=== PATIENT | female | born 1975 | race Caucasian/White ===

== ENCOUNTER 2021-12-20 20:06 | Emergency (ER) | payer OTHER ==
[~2021-12-20] VITALS: Ht 170 cm; Wt 94.0 kg
--- NOTE | 2021-12-20 20:37 | ED Upper Extremity ---
General Chief Complaint: Upper Extremity Stated Complaint: WRIST INJURY Nursing Triage Note: PT AMB TO ED BY POV WITH C/O R WRIST PAIN. 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 oz. kg; 32.00 BMI Method: Progress/Results/Core Measures Results/Orders My Orders Orders - DONTAE JOHNSON NEWS EDITOR Wrist, Right, 3 Views Or More (12/20/21 20:22) Vital Signs/I&O 12/20/21 20:13 Temp 36.7 Pulse 94 Resp 16 B/P (MAP) 125/61 (82) Pulse Ox 96 O2 Delivery Room Air Blood Pressure Mean: 82 Departure Impression Primary Impression: Sprain of wrist, right Disposition: HOME, SELF-CARE Condition: Stable Departure-Patient Inst. Decision time for Depature: 21:24 Patient Instructions: Common Wrist Injuries ED Add. Discharge Instructions: Plan: 1. Ice 20 minutes at a time. 2. Wear brace for the next week. 3. Follow up with your doctor for any persistent symptoms. 4. Return to ER for any new, concerning, or worsening symptoms. 5. Tylenol or Ibuprofen as needed for pain per package. All discharge instructions reviewed with patient and/or family. Voiced understanding. Work/School Note: Work Release Form Date Seen in the Emergency Department: Dec 20, 2021 Return to Work: Dec 25, 2021 Restrictions: No Restrictions DONTAE JOHNSON APRN Dec 20, 2021 20:37
--- NOTE | 2021-12-20 21:21 | Diagnostic Imaging Report ---
EXAMINATION: Right wrist 3 or more views. REASON FOR EXAM: Lifting injury. Right wrist pain. COMPARISON: None available. FINDINGS: There is no acute fracture or dislocation of the right wrist. There is normal alignment of the wrist and carpel bones. The imaged joint spaces are preserved. No large joint effusion is seen in the right wrist. The surrounding soft tissues are unremarkable. IMPRESSION: No acute fracture or dislocation in the right wrist. Dictated by: Dictated on workstation # [id number]
[2021-12-20 22:00] VITALS: BP 126/68
== END 2021-12-20 22:00 | disposition home or self-care (01) ==
LOC: EDUNIT# 20:06 → ER 20:09
DX: S63.501A Unspecified sprain of right wrist, initial encounter (principal); X50.1XXA Overexertion from prolonged static or awkward postures, initial encounter
CPT/HCPCS: 29125; 73110

== ENCOUNTER 2022-09-13 20:49 | Emergency (ER) | payer OTHER ==
[~2022-09-13] VITALS: Ht 170.2 cm; Wt 93.3 kg
[2022-09-13] MEDS ORDERED: NS IV 1000 ML 1,000 ML IV STA ×2 (21:24→22:15)
--- NOTE | 2022-09-13 21:34 | ED General ---
General Chief Complaint: COVID19 Suspect/Confirmed Stated Complaint: FEVER/COUGH/CONGESTION/HURTS TO BREATH Nursing Triage Note: TO ED VIA POV AND AMBULATORY TO ROOM 5 WITH C/O NOT FEELING WELL FOR A WEEK. STATES SHE HAS HAD "LOTS OF DRAINAGE AND WHAT FEELS LIKE IS PLEURISY". SUBJECTIVE FEVER AT HOME WITH READ HIGH "104". TOOK MOTRIN AT 1600 AND TYLENOL AT 1900 TONIGHT. Source of Information: Patient Exam Limitations: No Limitations History of Present Illness Date Seen by Provider: Sep 13, 2022 Time Seen by Provider: 21:25 Initial Comments Patient is a 47-year-old female who presents to the emergency room with a chief complaint of generalized fatigue, cough, fever for a week. Patient states that she has had some sinus congestion and drainage. She has been taking Claritin at home to help "dry it up". She took her temperature this evening and it read 104, she took some Tylenol and then decided to come to the emergency department. She is COVID vaccinated and flu vaccinated. She works at a lower local [employer]. No COVID outbreaks recently. She states her cough is dry. It hurts to take a deep breath. She denies earache, has mild sore throat. She has had prior tonsillectomy and adenoidectomy. No abdominal pain, nausea or vomiting. No black or bloody stools. She had a urinary tract infection earlier in the month which required 2 rounds of antibiotics. She is asymptomatic of UTI at this point. Denies rashes, joint pain or swelling. No headache. Of note the patient is tachycardic in the 120s, her blood pressure is good. SPO2 on room air lying supine in the bed is 93%. She is a former smoker, quit in 2012. Does not have to use inhalers or breathing treatments. No history of blood clot. No recent travel or prolonged immobility or surgery. Takes medication for tachycardia as well as "insulin resistance" All other review of systems reviewed and negative except as stated. Timing/Duration: 1 Week Severity: Moderate Associated Systoms: Cough, Fever/Chills, Malaise, Shortness of Air Allergies and Home Medications Allergies Coded Allergies: No Known Drug Allergies (Unverified , 09/13/22) Patient Home Medication List Home Medication List Reviewed: Yes Acetaminophen with Codeine (Acetaminop-Codeine 120-12 mg/5) 120 Mg-12 Mg/5 Ml (5 Ml) Solution, 10 ML PO Q6H PRN for cough Prescribed by: SHERRIE ANN on 09/13/222331 Albuterol Sulfate (Proventil Hfa) 6.7 Gm Hfa.aer.ad, 2 PUFF INH Q6H Prescribed by: SHERRIE ANN on 09/13/222331 Review of Systems Review of Systems Constitutional: see HPI, chills, fever, malaise EENTM: nose congestion Respiratory: cough, short of breath Cardiovascular: no symptoms reported Gastrointestinal: no symptoms reported Genitourinary: no symptoms reported : No Musculoskeletal: no symptoms reported Skin: no symptoms reported Psychiatric/Neurological: No Symptoms Reported All Other Systems Reviewed Negative Unless Noted: Yes Past Luswgir-Hhimny-Jqzmou Hx Patient Social History Tobacco Use?: No Substance use?: No Alcohol Use?: No Immunizations Up To Date Influenza Vaccine Up-to-Date: Yes; Up-to-Date First/Initial COVID19 Vaccinat: 2020 Second COVID19 Vaccination Tino: 2020 Third COVID19 Vaccination Date: 2021 Physical Exam Vital Signs Vital Signs - First Documented 09/13/22 21:01 Temp 38.8 Pulse 121 Resp 16 B/P (MAP) 151/83 (105) Pulse Ox 92 O2 Delivery Room Air Capillary Refill : Less Than 3 Seconds Height, Weight, BMI Height: '" Weight: lbs. oz. kg; 32.00 BMI Method: General Appearance: No Apparent Distress, WD/WN Eyes: Bilateral Eye Normal Inspection, Bilateral Eye PERRL, Bilateral Eye EOMI HEENT: PERRL/EOMI, TMs Normal (effusions bilaterally, no erythema), Pharynx Normal Neck: Normal Inspection, Non Tender, Supple Respiratory: Lungs Clear, Normal Breath Sounds, No Accessory Muscle Use, No Respiratory Distress Cardiovascular: Regular Rate, Rhythm, Tachycardia (120) Gastrointestinal: Normal Bowel Sounds, Non Tender, Soft Extremity: Normal Capillary Refill (brisk), Normal Inspection, Normal Range of Motion, Non Tender, No Calf Tenderness, No Pedal Edema Neurologic/Psychiatric: Alert, Oriented x3, No Motor/Sensory Deficits, Normal 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, 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 Norm as Tested Skin: Normal Color, Warm/Dry Focused Exam Lactate Level 3/30/23 21:33: Lactic Acid Level 0.86 Lactic Acid Level Laboratory Tests Test 09/13/22 21:33 Lactic Acid Level 0.86 MMOL/L (0.50-2.00) Progress/Results/Core Measures Suspected Sepsis SIRS Temperature: Pulse: 121 Respiratory Rate: 16 Laboratory Tests 09/13/22 21:33: White Blood Count 15.9H Blood Pressure 151 /83 Mean: 105 09/13/22 21:33: Lactic Acid Level 0.86 Laboratory Tests 09/13/22 21:33: Creatinine 0.71, INR Comment 1.0, Platelet Count 262, Total Bilirubin 0.3 Results/Orders Lab Results Laboratory Tests Test 09/13/22 21:25 09/13/22 21:27 09/13/22 21:33 Range/Units Urine Color YELLOW Urine Clarity CLEAR Urine pH 6.5 5-9 Urine Specific [place] 1.015 L 1.016-1.022 Urine Protein NEGATIVE NEGATIVE Urine Glucose (UA) NEGATIVE NEGATIVE Urine Ketones NEGATIVE NEGATIVE Urine Nitrite NEGATIVE NEGATIVE Urine Bilirubin NEGATIVE NEGATIVE Urine Urobilinogen 0.2 < = 1.0 MG/DL Urine Leukocyte Esterase NEGATIVE NEGATIVE Urine RBC (Auto) TRACE-I H NEGATIVE Urine RBC RARE /HPF Urine WBC NONE /HPF Urine Squamous Epithelial Cells 10-25 H /HPF Urine Crystals PRESENT H /LPF Urine Amorphous Sediment FEW CAL URATES H /LPF Urine Bacteria FEW H /HPF Urine Casts NONE /LPF Urine Mucus SMALL H /LPF Urine Culture Indicated CULTURE PENDING Influenza Type A (RT-PCR) Not Detected Not Detecte Influenza Type B (RT-PCR) Not Detected Not Detecte SARS-CoV-2 RNA (RT-PCR) Not Detected Not Detecte White Blood Count 15.9 H 4.3-11.0 10^3/uL Red Blood Count 4.77 3.80-5.11 10^6/uL Hemoglobin 13.0 11.5-16.0 g/dL Hematocrit 40 35-52 % Mean Corpuscular Volume 84 80-99 fL Mean Corpuscular Hemoglobin 27 25-34 pg Mean Corpuscular Hemoglobin Concent 33 32-36 g/dL Red Cell Distribution Width 13.8 10.0-14.5 % Platelet Count 262 130-400 10^3/uL Mean Platelet Volume 10.3 9.0-12.2 fL Immature Granulocyte % (Auto) 1 % Neutrophils (%) (Auto) 81 H 42-75 % Lymphocytes (%) (Auto) 13 12-44 % Monocytes (%) (Auto) 5 0-12 % Eosinophils (%) (Auto) 0 0-10 % Basophils (%) (Auto) 0 0-10 % Neutrophils # (Auto) 12.9 H 1.8-7.8 10^3/uL Lymphocytes # (Auto) 2.0 1.0-4.0 10^3/uL Monocytes # (Auto) 0.9 0.0-1.0 10^3/uL Eosinophils # (Auto) 0.0 0.0-0.3 10^3/uL Basophils # (Auto) 0.1 0.0-0.1 10^3/uL Immature Granulocyte # (Auto) 0.1 0.0-0.1 10^3/uL Neutrophils % (Manual) 85 % Lymphocytes % (Manual) 13 % Monocytes % (Manual) 2 % Platelet Estimate NORMAL Blood Morphology Comment NORMAL Prothrombin Time 13.8 12.2-14.7 SEC INR Comment 1.0 0.8-1.4 Activated Partial Thromboplast Time 35 24-35 SEC Sodium Level 141 135-145 MMOL/L Potassium Level 3.8 3.6-5.0 MMOL/L Chloride Level 107 98-107 MMOL/L Carbon Dioxide Level 23 21-32 MMOL/L Anion Gap 11 5-14 MMOL/L Blood Urea Nitrogen 11 7-18 MG/DL Creatinine 0.71 0.60-1.30 MG/DL Estimat Glomerular Filtration Rate 106 BUN/Creatinine Ratio 15 Glucose Level 114 H 70-105 MG/DL Lactic Acid Level 0.86 0.50-2.00 MMOL/L Calcium Level 8.9 8.5-10.1 MG/DL Corrected Calcium 8.8 8.5-10.1 MG/DL Total Bilirubin 0.3 0.1-1.0 MG/DL Aspartate Amino Transf (AST/SGOT) 14 5-34 U/L Alanine Aminotransferase (ALT/SGPT) 23 0-55 U/L Alkaline Phosphatase 95 40-136 U/L Total Protein 7.2 6.4-8.2 GM/DL Albumin 4.1 3.2-4.5 GM/DL My Orders Orders - SHERRIE ANN MD Cbc With Automated Diff (09/13/22 21:24) Comprehensive Metabolic Panel (09/13/22 21:24) Blood Culture (09/13/22 21:24) Sputum Culture (09/13/22 21:24) Urinalysis (09/13/22 21:24) Urine Culture (09/13/22 21:24) Protime With Inr (09/13/22 21:24) Partial Thromboplastin Time (09/13/22 21:24) Chest 1 View, Ap/Pa Only (09/13/22 21:24) Ed Iv/Invasive Line Start (09/13/22 21:24) Ed Iv/Invasive Line Start (09/13/22 21:24) Vital Signs Adult Sepsis Patie Q15M (09/13/22 21:24) O2 (09/13/22 21:24) Remove Rings In Anticipation O (09/13/22 21:24) Lactic Acid Analyzer (09/13/22 21:24) Covid 19 Inhouse Test (09/13/22 21:24) Influenza A And B By Pcr (09/13/22 21:24) Isolation Central Supply Req (09/13/22 21:24) Ns Iv 1000 Ml (Sodium Chloride 0.9%) (09/13/22 21:24) Manual Differential (09/13/22 21:33) Ns Iv 1000 Ml (Sodium Chloride 0.9%) (09/13/22 22:15) Ketorolac Injection (Toradol Injection) (09/13/22 23:45) Medications Given in ED Current Medications Medications Dose Ordered Sig/Flynn Route Start Time Stop Time Status Last Admin Dose Admin Ketorolac Tromethamine 15 mg ONCE ONCE IVP 09/13/22 23:45 09/13/22 23:43 DC 09/13/22 23:37 15 MG Vital Signs/I&O 09/13/22 09/13/22 09/13/22 09/13/22 21:01 21:01 22:28 22:35 Temp 38.8 38.3 Pulse 121 105 104 Resp 16 B/P (MAP) 151/83 (105) 96/51 (66) Pulse Ox 92 94 94 O2 Delivery Room Air Room Air Room Air Room Air 09/13/22 23:42 Temp 38.3 Pulse 102 Resp 16 B/P (MAP) 118/60 Pulse Ox 95 O2 Delivery Room Air 09/14/22 00:00 Intake Total 2000 ml Balance 2000 ml Capillary Refill : Less Than 3 Seconds Blood Pressure Mean: 105 Progress Note : Time: 23:00 Progress Note Patient seen and evaluated by me. Evaluation today includes a physical exam, "sepsis work-up". She had CBC, Chem-12, lactic acid, coags, urinalysis, chest x-ray, COVID test and flu test and blood cultures. Physical exam pertinent for tachycardia, normal blood pressure. Slightly low SPO2 at 93% while reclining semirecumbent. Alert and oriented, no acute distress. HEENT reveals bilateral effusions, moist oral mucosa, tonsils surgically absent slight erythema in the pharynx. Lungs are clear, diminished at the bases. Heart is tachycardic. Abdomen is soft, benign. No rashes, joint effusions or tenderness. No focal neurologic deficits. Differential diagnosis based on history and physical includes COVID, flu, bacteremia/sepsis, pneumonia, urosepsis. Labs independently reviewed by me, CBC shows a mild leukocytosis at 15,000. Chemistry pertinent for slightly elevated glucose at 114. Lactic acid 0.86. Coags normal. Urinalysis negative for signs of infection. COVID and flu are negative. Chest x-ray is unremarkable. Patient is treated with IV fluids and Toradol for headache. She had in total 2 L of normal saline. Reevaluation after labs, imaging and fluids and the patient feels much better. No concerning findings for pneumonia or urosepsis. Her heart rate was down to 103 on discharge. Oxygen saturations 94 to 95% on discharge. Suspect nonspecific viral syndrome. Patient was prescribed cough medication and an albuterol inhaler for her cough. Return precautions discussed. She verbalized understanding. All questions are sought and answered. Patient was given a work note to return to work on Saturday. Diagnostic Imaging Diagonstic Imaging: Xray Plain Films/CT/US/NM/MRI: chest Comments [facility], [place] NAME: [facility] REC#: [id number] PT STATUS: REG ER : 1975 PHYSICIAN: SHERRIE ANN MD ADMIT DATE: 09/13/22/ER Signed Date of Exam:09/13/22 CHEST 1 VIEW, AP/PA ONLY EXAMINATION: Chest 1 view. HISTORY: Fever, cough. COMPARISON: None available. FINDINGS: Heart size and pulmonary vasculature are normal. The lungs are clear without consolidation, pleural effusion or pneumothorax. The osseous structures are intact. IMPRESSION: No acute radiographic abnormality in the chest. Dictated by: Dictated on workstation # [id number] Dict: 09/13/222149 Trans: 09/13/222202 PJE [id number] Interpreted by: ABBY WRIGHT DO Electronically signed by: ABBY WRIGHT DO 09/13/222202 Departure Impression Primary Impression: Febrile illness Disposition: HOME, SELF-CARE Condition: Stable Departure-Patient Inst. Decision time for Depature: 23:09 Referrals: ALLEGRA MCKEON DO (PCP/Family) Primary Care Physician Patient Instructions: Fever of Unknown Origin (DC) Add. Discharge Instructions: Drink plenty of fluids to stay well hydrated. Continue to take Tylenol extra strength (2 tablets) every 6 hours and Ibuprofen 3 tablets (600mg) every 6 hours as needed for fever over 100.4/body aches. Albuterol inhaler 2 puffs every 4-6 hours for shortness of breath. Tylenol with codeine syrup 1-2 teaspoons every 6 hours for cough. (Do not take extra tylenol if you are taking the cough syrup). Call your primary care doctor for a follow appointment next week. Return to the Emergency Department for any new, emergent or concerning symptoms. Scripts Acetaminophen with Codeine (Acetaminop-Codeine 120-12 mg/5) 120 Mg-12 Mg/5 Ml (5 Ml) Solution 10 ML PO Q6H PRN for cough, #100 ML Prov: SHERRIE ANN MD 09/13/22 Albuterol Sulfate (Proventil Hfa) 6.7 Gm Hfa.aer.ad 2 PUFF INH Q6H for SHORTNESS OF BREATH, #1 EACH Prov: SHERRIE ANN MD 09/13/22 Work/School Note: Work Release Form Date Seen in the Emergency Department: Sep 13, 2022 Return to Work: Sep 17, 2022 Copy Copies To 1: ALLEGRA MCKEON KATHRYN M MD Sep 13, 2022 21:34
[2022-09-13 21:43] LABS: BASOPHILS # (AUTO) 0.1 10^3/uL (0.0-0.1); BASOPHILS % (AUTO) 0 % (0-10); EOSINOPHILS % (AUTO) 0 % (0-10); HEMATOCRIT 40 % (35-52); LYMPHOCYTES % (AUTO) 13 % (12-44); MEAN CORPUSCULAR HEMOGLOBIN 27 pg (25-34); MEAN CORPUSCULAR HGB CONC 33 g/dL (32-36); MEAN CORPUSCULAR VOLUME 84 fL (80-99); MEAN PLATELET VOLUME 10.3 fL (9.0-12.2); MONOCYTES # (AUTO) 0.9 10^3/uL (0.0-1.0); MONOCYTES % (AUTO) 5 % (0-12); NEUTROPHILS # (AUTO) 12.9 10^3/uL (1.8-7.8); NEUTROPHILS % (AUTO) 81 % (42-75); PLATELET COUNT 262 10^3/uL (130-400); WHITE BLOOD COUNT 15.9 10^3/uL (4.3-11.0)
[2022-09-13 21:45] LABS: BILIRUBIN,URINE NEGATIVE (NEGATIVE); CLARITY,URINE CLEAR; COLOR,URINE YELLOW; GLUCOSE, URINE (UA) NEGATIVE (NEGATIVE); KETONES,URINE NEGATIVE (NEGATIVE); LEUKOCYTE ESTERASE ,URINE NEGATIVE (NEGATIVE); NITRITE,URINE NEGATIVE (NEGATIVE); PH,URINE 6.5 (5-9); PROTEIN,URINE NEGATIVE (NEGATIVE)
--- NOTE | 2022-09-13 21:53 | Diagnostic Imaging Report ---
EXAMINATION: Chest 1 view. HISTORY: Fever, cough. COMPARISON: None available. FINDINGS: Heart size and pulmonary vasculature are normal. The lungs are clear without consolidation, pleural effusion or pneumothorax. The osseous structures are intact. IMPRESSION: No acute radiographic abnormality in the chest. Dictated by: Dictated on workstation # [id number]
[2022-09-13 21:54] LABS: ALBUMIN 4.1 GM/DL (3.2-4.5); POTASSIUM 3.8 MMOL/L (3.6-5.0)
[2022-09-13 21:54] LABS: AMORPHOUS SEDIMENT,UR FEW AMOR URATES /LPF; BACTERIA,URINE FEW /HPF; RBC,URINE RARE /HPF
[2022-09-13 21:55] LABS: CALCIUM 8.9 MG/DL (8.5-10.1); PROTHROMBIN TIME PATIENT 13.8 SEC (12.2-14.7)
[2022-09-13 21:56] LABS: TOTAL PROTEIN 7.2 GM/DL (6.4-8.2)
[2022-09-13 21:58] LABS: BILIRUBIN,TOTAL 0.3 MG/DL (0.1-1.0)
[2022-09-13 22:00] LABS: CREATININE SERUM 0.71 MG/DL (0.60-1.30); LYMPHOCYTES % (MANUAL) 13 %; MONOCYTES % (MANUAL) 2 %; NEUTROPHILS % (MANUAL) 85 %; PLATELET ESTIMATE NORMAL; RBC MORPH NORMAL
[2022-09-13] MEDS ORDERED: ACET5ELI PO (23:32)
[2022-09-13] MEDS ORDERED: RT-ALBUINH INH (23:32)
[2022-09-13 23:42] VITALS: BP 118/60
[2022-09-13] MEDS ORDERED: KETOROLAC 15 MG/ML VIAL IVP ONE (23:45)
[2022-09-18] MEDS ORDERED: CEPH500T PO (06:56)
== END 2022-09-13 23:43 | disposition home or self-care (01) ==
LOC: EDUNIT# 20:49 → ER 20:53
DX: R50.9 Fever, unspecified (principal); D72.829 Elevated white blood cell count, unspecified; R05.9 Cough, unspecified; M79.10 Myalgia, unspecified site; R06.02 Shortness of breath; R00.0 Tachycardia, unspecified; R51.9 Headache, unspecified; Z87.891 Personal history of nicotine dependence; Z98.890 Other specified postprocedural states; Z20.822 Contact with and (suspected) exposure to COVID-19
CPT/HCPCS: 36415; 71045; 80053; 81000; 83605; 85007; 85027; 85610; 85730; 87040; 87088; 87636

== ENCOUNTER → 2023-04-23 | Outpatient (CLI) | payer OTHER ==
[~2023-04-23] MED LIST: ACET5ELI PO; CEPH500T PO; RT-ALBUINH INH
[2023-04-23 16:01] LABS: ALBUMIN 4.2 GM/DL (3.2-4.5); POTASSIUM 3.7 MMOL/L (3.6-5.0)
[2023-04-23 16:03] LABS: HEMATOCRIT 41 % (35-52); HEMOGLOBIN 13.2 g/dL (11.5-16.0); MEAN CORPUSCULAR HEMOGLOBIN 27 pg (25-34); MEAN CORPUSCULAR HGB CONC 32 g/dL (32-36); MEAN CORPUSCULAR VOLUME 84 fL (80-99); MEAN PLATELET VOLUME 10.1 fL (9.0-12.2); PLATELET COUNT 311 10^3/uL (130-400); WHITE BLOOD COUNT 11.4 10^3/uL (4.3-11.0)
[2023-04-23 16:04] LABS: TOTAL PROTEIN 7.4 GM/DL (6.4-8.2)
[2023-04-23 16:05] LABS: BILIRUBIN,TOTAL 0.3 MG/DL (0.1-1.0)
[2023-04-23 16:07] LABS: CREATININE SERUM 0.8 MG/DL (0.60-1.30)
[2023-04-23 16:10] LABS: MAGNESIUM 2.1 MG/DL (1.6-2.4)
[2023-04-23 16:54] LABS: ERYTHROCYTE SEDIMENTATION RATE 19 MM/HR (0-20)
== END ==
LOC: LAB 15:24
PROVIDERS: ATTEND Internal Medicine Cardiovascular Disease
DX: R00.2 Palpitations (principal)
CPT/HCPCS: 36415; 80053; 83735; 84443; 85027; 85652

== ENCOUNTER → 2023-05-21 | Outpatient (CLI) | payer OTHER ==
[~2023-05-21] MED LIST changes: +CATHETER FLUSH 10 ML SYR IVP PRN; +REGADENOSON 0.4 MG/5 ML SYR IV ONE
[2023-05-21 09:19] VITALS: BP 147/72
== END ==
LOC: CARD 07:12
PROVIDERS: ATTEND Internal Medicine Cardiovascular Disease
DX: R00.2 Palpitations (principal)
CPT/HCPCS: 78452; 93017; A9502